=== PATIENT | female | born 1960 | race Caucasian/White ===

== ENCOUNTER 2019-10-30 07:33 | Day surgery (SDC) | payer BC ==
[2019-10-27 10:00] VITALS: BMI 42.9
[2019-10-30 07:58] VITALS: RESP 16; TEMP 98.7
[2019-10-30] MEDS ORDERED: LACTATED RINGERS 1,000 ML IV ONE (08:05)
[2019-10-30] MEDS ORDERED: LIDOCAINE 1% (10MG/ML) FOR IV START INTRADERMA ONE (08:05)
[2019-10-30 08:13] LABS: Glucose,Whole Blood 169 mg/dL (75-99)
[2019-10-30] MEDS ORDERED: LIDOCAINE 1% INJ 10MG/ML (20 ML MDV) ONE (08:36)
[2019-10-30] MEDS ORDERED: PROPOFOL 10 MG/ML 20 ML VIAL IV ONE (08:36)
--- NOTE | 2019-10-30 08:53 | P.PCN ---
Date of Procedure: 10/30/19 Description of Procedure: BRIEF HISTORY: Patient is a 59-year-old female presenting for outpatient esophagogastroduodenoscopy evaluation of symptoms of dysphagia. Patient has long-standing history of reflux disease. She reports compliance with lansoprazole therapy. In spite of that she will of episodes of a proximal esophageal dysphagia. She has had an EGD in the past. PROCEDURE PERFORMED: Esophagogastroduodenoscopy with biopsy. PREOPERATIVE DIAGNOSIS: Esophageal dysphagia, GERD. ESTIMATED BLOOD LOSS: Minimal. IV sedation per anesthesia. PROCEDURE: After informed consent was obtained, the patient was brought into the endoscopy unit. IV sedation was administered by Anesthesia under continuous monitoring. Initially the Olympus GIF-190 video endoscope was inserted into the mouth. Esophagus intubated without any difficulty. It was gradually advanced into the stomach and duodenum and carefully examined. The bulb and the second part of the duodenum appeared normal, with biopsies taken. The scope at this time was withdrawn to the stomach, adequately insufflated with air, and upon careful examination, mucosa of the antrum, body, cardia and the fundus appeared normal, except for some mild linear erythema in the antrum suggestive of mild antritis with biopsies of antrum and body taken. The scope was then withdrawn into the esophagus. The GE junction was located at 37 cm from the incisors, and biopsied. The esophagus appeared normal, with mid esophageal biopsies taken. There were no erosions or ulcerations seen and the patient tolerated the procedure well. IMPRESSION: 1. Mild gastritis, antrum and body biopsied. 2. Biopsies of the duodenum, GE junction and midesophagus. RECOMMENDATIONS: The findings of this examination were discussed with the patient and her friend. Okay to resume diet. Okay to resume medications. Await pathology from biopsies. Would recommend continuing lansoprazole therapy, also discuss a trial of [id number] Pepcid at night prior to bed. GERD lifestyle modifications discussed.
[2019-10-30 09:12] VITALS: BP 110/58; PULSE 82
== END 2019-10-30 09:25 | disposition home or self-care (01) ==
LOC: ORWHC2ENDO 07:33
PROVIDERS: ATTEND Internal Medicine
DX: K29.50 Unspecified chronic gastritis without bleeding (principal); K21.9 Gastro-esophageal reflux disease without esophagitis; J44.9 Chronic obstructive pulmonary disease, unspecified; F17.210 Nicotine dependence, cigarettes, uncomplicated; E11.9 Type 2 diabetes mellitus without complications; F41.9 Anxiety disorder, unspecified; F32.9 Major depressive disorder, single episode, unspecified; Z88.2 Allergy status to sulfonamides; Z79.82 Long term (current) use of aspirin; Z79.84 Long term (current) use of oral hypoglycemic drugs; Z79.899 Other long term (current) drug therapy; Z90.49 Acquired absence of other specified parts of digestive tract; Z98.890 Other specified postprocedural states
CPT/HCPCS: 88305; 43239; J2001; J2704

== ENCOUNTER → 2022-07-24 | Outpatient (CLI) | payer BC ==
[2022-07-24 07:41] VITALS: BP 143/86; PULSE 102; RESP 16; TEMP 98.4
--- NOTE | 2022-07-24 07:58 | P.GSHP ---
History of Present Illness H&P Date: 07/24/22 Chief Complaint: Abnormal left breast microcalcifications Roxie is a 62-year-old white female seen in consultation for DR. English regarding suspicious pleomorphic microcalcifications in the left breast. [place] [address]. This revealed microcalcifications in the mid third of the left breast along the retroareolar region, stable findings in the right breast. [place] [id number]. This revealed that the microcalcifications demonstrated some pleomorphism and stereotactic core biopsy was recommended. She was not complaining of any lumps masses or nodules of concern in either breast. She has never had surgery in either breast. She is not complaining of any recent trauma or infection in the breast. Caffeine: occasional nicotine: 1 PPD/40 years chocolate: 4 times/week BCP: for about 5 years in hormones: none Note 06-29-22 NICHOL Kaplan reviewed Family History: mother: lung cancer paternal uncle: bladder cancer paternal cousin: bladder cancer Hormonal History: menarche: 16 M1, breast fed: no, age at first : 18 menopause: 45 Surgical History: gallbladder Medical History: type 2 diabetes anxiety/depression IBS Social History: nicotine: 1 PPD/40 year alcohol: none drugs: none - Constitutional Constitutional: Reports sweats - EENT Eyes: denies blurred vision, denies pain Ears: deny: decreased hearing, tinnitus Ears, nose, mouth and throat: Denies headache, Denies sore throat - Breasts Breasts: bilateral: as per HPI - Cardiovascular Cardiovascular: Reports shortness of breath, Denies chest pain - Respiratory Respiratory: Reports as per HPI, Reports cough - Gastrointestinal Comment: IBS Gastrointestinal: Reports constipation, Reports diarrhea, Denies abdominal pain, Denies nausea, Denies vomiting - Genitourinary (Female) Comment: cystoscope done followed with urology Genitourinary: Reports hematuria, Denies dysuria - Menstruation Menstruation: Reports postmenopausal - Musculoskeletal Musculoskeletal: Reports myalgias - Integumentary Integumentary: Denies pruritus, Denies rash - Neurological Neurological: Denies numbness, Denies weakness - Psychiatric Psychiatric: Reports anxiety, Reports depression - Endocrine Endocrine: Reports fatigue - Hematologic/Lymphatic Comment: aspirin stopped 1 week ago - Allergic/Immunologic Allergic/Immunologic: Reports as per HPI Past Medical History Past Medical History: Diabetes Mellitus, GERD/Reflux Additional Past Medical History / Comment(s): "Start of emphysema." Starting to have trouble swallowing, food getting stuck in throat History of Any Multi-Drug Resistant Organisms: None Reported Past Surgical History: Cholecystectomy Additional Past Surgical History / Comment(s): EGD, Colonoscopy. Past Anesthesia/Blood Transfusion Reactions: Motion Sickness Past Psychological History: Anxiety, Depression, Panic Disorder Additional Psychological History / Comment(s): Panic Attacks Smoking Status: Current every day smoker Past Alcohol Use History: None Reported Additional Past Alcohol Use History / Comment(s): Smoking 1 ppd since age 17 Past Drug Use History: None Reported - Past Family History Mother Family Medical History: Cancer Additional Family Medical History / Comment(s): lung cancer Medications and Allergies Home Medications Medication Instructions Recorded Confirmed Type Aspirin [Adult Low Dose Aspirin EC] 81 mg PO HS 10/27/19 07/08/22 History Cholecalciferol [Vitamin D3 (25 2,000 unit PO DAILY 10/27/19 07/08/22 History Mcg = 1000 Iu)] FLUoxetine HCL [PROzac] 40 mg PO DAILY 10/27/19 07/08/22 History Multivit/Folic Acid/Vit K1 2 each PO DAILY 10/27/19 07/08/22 History [One-A-Day Women's 50 Plus Tab] Pravastatin Sodium [Pravachol] 40 mg PO HS 10/27/19 07/08/22 History lisinopriL [Zestril] 5 mg PO HS 10/27/19 07/08/22 History metFORMIN HCL [metFORMIN HCL ER 500 mg PO HS 10/27/19 07/08/22 History Osmotic] Famotidine/Ca Carb/Mag Hydrox 1 tab PO HS 07/08/22 07/08/22 History [Pepcid Complete Tablet Chew] Allergies Allergy/AdvReac Type Severity Reaction Status Date / Time Sulfa (Sulfonamide Allergy blistering Verified 07/08/22 11:14 Antibiotics) rash Surgical - Exam - General well developed, well nourished - Eyes normal ocular movement - Neck trachea midline - Respiratory normal expansion - Cardiovascular Rhythm: regular Heart Sounds: normal: S1, S2 - Abdomen Abdomen: soft, non tender, no guarding, no rigid, no rebound - Integumentary normal turgor - Neurologic no disoriented, no combative - Musculoskeletal normal gait, normal posture - Psychiatric oriented to time, oriented to person, oriented to place, speech is normal, memory intact Breast Exam: BRA: 46DD inspection: Bilateral grade 3 ptosis, on the nipple of the left breast there is what appears to be a small cyst like structure which sebum extrudes from when compressed Palpation: Right breast: Multiple positional exam fibrocystic changes no dominant masses or nodules of concern Right axilla: No adenopathy of concern Left breast: Multi-positional exam fibrocystic changes, no dominant masses or nodules of concern, changes at the nipple as described Left axilla: No adenopathy of concern Results Mammogram report reviewed Assessment and Plan Assessment: Impression: Diabetes Anxiety/depression Irritable bowel syndrome Radiographic abnormality microcalcifications of concern left breast Small cystlike structure at the tip of the nipple which appears to have sebum present within it when compressed Plan: Stereotactic core biopsy left breast Risk and benefits of the procedure were discussed with the patient. Risks include but are not limited to bleeding, infection, reaction to the anesthetic. If the lesion is unable to be targeted than the procedure would be aborted and possible needle localization resection in the operating room at a later date. If tissue acquisition is discordant and it may be necessary to obtain further tissue. The patient understands the risks and benefits and wishes to proceed. Cc: Frances Roy
--- NOTE | 2022-07-24 09:00 | P.PCN ---
Date of Procedure: 07/24/22 Preoperative Diagnosis: Left breast microcalcifications of concern Postoperative Diagnosis: Same Procedure(s) Performed: Left breast stereotactic core biopsy Anesthesia: local Surgeon: Caro Shah Pathology: other (Breast tissue with calcifications in specimen) Condition: stable Disposition: same day Indications for Procedure: Mammogram left breast abnormal calcifications Operative Findings: Core biopsy breast tissue revealing calcifications of concern left breast Description of Procedure: The patient was brought to the stereotactic core biopsy room. She was positioned prone on the lo-rad table. A stonehand film was obtained. A CC from a karol approach was utilized. The calcifications of concern were identified. The breast was prepped using Betadine. 10 mL of 1% and 20 mL of half percent lidocaine were used to anesthetize the area of concern. A 9-gauge vacuum- assisted core rotating biopsy needle was driven to the correct coordinates. A prefire film was obtained and the needle was noted to be in the correct location. The needle was fired. A post fire film was obtained. The needle was noted to be in the correct location. 13 core biopsy specimens were obtained. Radiograph of the specimens revealed the calcifications of concern were obtained. A secure tatianna top hat clip was placed. The clip was noted to be in the correct location. The patient tolerated the procedure in stable condition. The specimen wassent to pathology. The patient will follow-up with Dr. Ruth next week.
--- NOTE | 2022-07-27 08:10 | MM ---
Date of Procedure: 07/24/22 Preoperative Diagnosis: Left breast microcalcifications of concern Postoperative Diagnosis: Same Procedure(s) Performed: Left breast stereotactic core biopsy Anesthesia: local Surgeon: Caro Shah Pathology: other (Breast tissue with calcifications in specimen) Condition: stable Disposition: same day Indications for Procedure: Mammogram left breast abnormal calcifications Operative Findings: Core biopsy breast tissue revealing calcifications of concern left breast Description of Procedure: The patient was brought to the stereotactic core biopsy room. She was positioned prone on the lo-rad table. A color checker film was obtained. A CC from above approach was utilized. The calcifications of concern were identified. The breast was prepped using Betadine. 10 mL of 1% and 20 mL of half percent lidocaine were used to anesthetize the area of concern. A 9-gauge vacuum- assisted core rotating biopsy needle was driven to the correct coordinates. A prefire film was obtained and the needle was noted to be in the correct location. The needle was fired. A post fire film was obtained. The needle was noted to be in the correct location. 13 core biopsy specimens were obtained. Radiograph of the specimens revealed the calcifications of concern were obtained. A secure tatianna top hat clip was placed. The clip was noted to be in the correct location. The patient tolerated the procedure in stable condition. The specimen wassent to pathology. The patient will follow-up with Dr. Ruth next week. ALBAN
== END ==
LOC: WWCWWP 07:06
PROVIDERS: ATTEND Surgery
DX: R92.8 Other abnormal and inconclusive findings on diagnostic imaging of breast (principal); Z88.2 Allergy status to sulfonamides
CPT/HCPCS: 19081; A4648

== ENCOUNTER → 2022-07-31 | Outpatient (CLI) | payer BC ==
--- NOTE | 2022-07-31 13:02 | P.PN ---
Subjective Progress Note Date: 07/31/22 Principal diagnosis: Fibrocystic breast changes Roxie is a 62-year-old white female status post her tactic core biopsy of the left breast [place] [id number]. Pathology was benign and concordant. It revealed fibroadenomatoid hyperplasia with calcifications and background fibrocystic changes. She tolerated the procedure without difficulty. Objective - Constitutional General appearance: Present: cooperative - Neck Neck: Present: normal ROM - Respiratory Respiratory: bilateral: CTA - Cardiovascular Heart sounds: normal: S1, S2 - Integumentary Integumentary Comment(s): Ecchymosis at left breast biopsy site, no evidence of infection or hematoma Assessment and Plan Assessment: Impression: Benign concordant [place] [id number]. Plan: Repeat left breast mammogram in 6 months with physician exam at that time CC: Dr. English
[2022-07-31 13:04] VITALS: BP 138/86; PULSE 102; RESP 17; TEMP 98.2
== END ==
LOC: WWCWWP 12:52
PROVIDERS: ATTEND Surgery
DX: N60.12 Diffuse cystic mastopathy of left breast (principal); Z88.2 Allergy status to sulfonamides

== ENCOUNTER → 2023-03-03 | Outpatient (CLI) | payer BC ==
--- NOTE | 2023-03-03 14:14 | MM ---
Reason for Exam: Follow-up at short interval from prior study. Last screening mammogram was performed 8 month(s) ago. Patient History: Menarche at age 16. First Full-Term at age 18. Postmenopausal. Previous Hyperplasia w/o Atypia at age 62. 07/24/2022, Benign MG stereo VAD BX LT on the left side. Risk Values: Verna 5 year model risk: 1.2%. NCI Lifetime model risk: 5.6%. Prior Study Comparison: 11/15/2020 Bilateral Screening Mammogram, [facility]. 06/03/2022 Bilateral Screening Mammogram, [facility]. 06/25/2022 Left MG work up mamm w CAD LT - 2, [facility]. Tissue Density: Left: The breast tissue is almost entirely fat. Findings: Analyzed By CAD. Left breast biopsy clip. There is no suspicious group of microcalcifications or new suspicious mass. No new suspicious masses, calcifications or distortions. Overall Assessment: Benign, BI-RAD 2 Management: Screening Mammogram of both breasts in 6 months. Results were given to the patient verbally at the time of exam. Patient should continue monthly self-breast exams. A clinical breast exam by your physician is recommended on an annual basis. This exam should not preclude additional follow-up of suspicious palpable abnormalities. Note on Verna scores and lifetime risk: 1. A Verna score greater than 3% is considered moderate risk. If this is the case, consider specialist referral to assess eligibility for a risk reducing agent. 2. If overall lifetime risk for the development of breast cancer is 20% or higher, the patient may qualify for future screening with alternating mammogram and breast MRI. Electronically signed and approved by: Robert Nobles DO
== END | disposition home or self-care (01) ==
LOC: RADMAMWWP 13:09
PROVIDERS: ATTEND Surgery
DX: R92.312 Mammographic fatty tissue density, left breast (principal); Z78.0 Asymptomatic menopausal state
CPT/HCPCS: 77061; 77065

== ENCOUNTER → 2023-09-02 | Outpatient (CLI) | payer BC ==
--- NOTE | 2023-09-06 08:42 | MM ---
Reason for Exam: Screening (asymptomatic). Last mammogram was performed 1 year(s) and 2 month(s) ago. Patient History: Menarche at age 16. First Full-Term at age 18. Postmenopausal. Previous Hyperplasia w/o Atypia at age 62. 07/24/2022, Benign MG stereo VAD BX LT on the left side. Risk Values: Verna 5 year model risk: 1.2%. NCI Lifetime model risk: 5.4%. Prior Study Comparison: 06/03/2022 Bilateral Screening Mammogram, [facility]. 06/25/2022 Left MG work up mamm w CAD LT - 2, [facility]. 03/03/2023 Left MG 3D diag mammo w/cad LT, [facility]. Tissue Density: There are scattered areas of fibroglandular density. Findings: Analyzed By CAD. There is no suspicious group of microcalcifications or new suspicious mass in either breast. Previous surgical clip noted in the left breast. Benign appearing calcifications. Overall Assessment: Benign, BI-RAD 2 Management: Screening Mammogram of both breasts in 1 year. . Patient should continue monthly self-breast exams. A clinical breast exam by your physician is recommended on an annual basis. This exam should not preclude additional follow-up of suspicious palpable abnormalities. Note on Verna scores and lifetime risk: 1. A Verna score greater than 3% is considered moderate risk. If this is the case, consider specialist referral to assess eligibility for a risk reducing agent. 2. If overall lifetime risk for the development of breast cancer is 20% or higher, the patient may qualify for future screening with alternating mammogram and breast MRI. Electronically signed and approved by: Silvano Sawant M.D. Radiologis
== END | disposition home or self-care (01) ==
LOC: RADMAMWWP 12:46
PROVIDERS: ATTEND Family Medicine
DX: Z12.31 Encounter for screening mammogram for malignant neoplasm of breast (principal); Z78.0 Asymptomatic menopausal state
CPT/HCPCS: 77063; 77067